=== PATIENT | female | born 1955 | race Caucasian/White ===

== ENCOUNTER 2019-10-26 16:36 | Emergency (ER) | payer OTHER ==
[2019-10-26 17:11] LABS: Bilirubin Negative (Negative); Blood, Urine Trace (Negative); Clarity Clear (Clear); Glucose, Urine (Dipstick) Negative (Negative); Ketone, Urine Negative (Negative); Leukocyte Large (Negative); Nitrite Negative (Negative); Protein, Urine (Dipstick) Negative (Neg-Trace); Urobilinogen 0.2 mg/dL (Less than 2); pH, Urine 6.5 (5.0-9.0)
[2019-10-26 17:17] LABS: Bacteria/HPF Rare-Few HPF (None Seen); Other Microscopic Description C&S SET UP; RBC/HPF 0-3 HPF (0-3); Squamous Epithelial 0-3 HPF (0-3)
== END 2019-10-26 17:25 | disposition home or self-care (01) ==
LOC: BURERS 16:36
DX: N39.0 Urinary tract infection, site not specified (principal); F17.210 Nicotine dependence, cigarettes, uncomplicated; F41.9 Anxiety disorder, unspecified; F32.9 Major depressive disorder, single episode, unspecified
CPT/HCPCS: 81003; 81015; 87086; 99284

== ENCOUNTER 2019-12-19 10:23 | Emergency (ER) | payer OTHER, SELFPAY ==
--- NOTE | 2019-12-19 14:44 | RAD ---
LEFT FOREARM TWO VIEWS: 12/19/19 An impacted fracture of the distal radius is present with very slight dorsal angulation of the distal parts. I cannot tell for sure about the ulnar styloid process. If there is a fracture here it is [place] irline. No effusion was seen at the elbow. IMPRESSION: Impacted fracture of the distal radius. POS: HOME
--- NOTE | 2019-12-19 14:46 | RAD ---
LEFT WRIST THREE VIEWS: 12/19/19 An impacted fracture of the distal radius is present with slight dorsal angulation of the distal part . As best as I can tell, the ulnar styloid is intact, but there were a few vague lucencies associated with it. This should be correlated with the clinical exam. Carpal bones all appeared intact. IMPRESSION: Impacted fracture of the distal radius. POS: HOME
== END 2019-12-19 12:48 ==
LOC: BURERS 10:23
DX: S52.502A Unspecified fracture of the lower end of left radius, initial encounter for closed fracture (principal); F41.9 Anxiety disorder, unspecified; F32.9 Major depressive disorder, single episode, unspecified; F17.210 Nicotine dependence, cigarettes, uncomplicated; Z79.82 Long term (current) use of aspirin; Z79.899 Other long term (current) drug therapy; W01.0XXA Fall on same level from slipping, tripping and stumbling without subsequent striking against object, initial encounter
CPT/HCPCS: 29125

== ENCOUNTER 2024-04-14 07:27 | Emergency (ER) | payer MEDICARE, MEDICAID ==
[2024-04-14] MEDS ORDERED: Cephalexin 250 MG CAP ONE (07:48)
[2024-04-14] MEDS ORDERED: Sulfameth/Trimethoprim DS 800-160mg TAB ONE (07:48)
== END 2024-04-14 07:58 | disposition home or self-care (01) ==
LOC: BURERS 07:27
DX: L02.213 Cutaneous abscess of chest wall (principal); R21 Rash and other nonspecific skin eruption; F17.210 Nicotine dependence, cigarettes, uncomplicated
CPT/HCPCS: 99282